=== PATIENT | male | born 1985 | race Two or more races ===

== ENCOUNTER 2019-12-23 10:50 | Outpatient (REF) | payer OTHER, SELFPAY ==
--- NOTE | 2019-12-23 11:05 | ECG_ITS ---
Test Reason : CHEST ABDUL AT REST Blood Pressure : / mmHG Vent. Rate : 066 BPM Atrial Rate : 066 BPM P-R Int : 134 ms QRS Dur : 106 ms QT Int : 400 ms P-R-T Axes : 069 068 038 degrees QTc Int : 419 ms Normal sinus rhythm Normal ECG When compared with ECG of 04-JUL-2018 00:26, No significant change was found Referred By: Caroline Canales Electronically Signed By:SANDHYA HUTTON
[2019-12-23 11:31] LABS: MANUAL DIFF FLAG NO
[2019-12-23 11:45] LABS: Basophils Absolute Auto 0.1 X10*3/uL (0.0-0.2); Basophils Percent Auto 0.9 % (0-2); Eosinophils Absolute Auto 0.2 X10*3/uL (0.0-0.4); Eosinophils Percent Auto 2.6 % (0-4); Hematocrit 44.6 % (42-52); Hemoglobin 14.3 g/dl (14.0-18.0); Imm Gran Abs Auto 0.02 X10*3/uL (0.00-0.03); Imm Gran Pct Auto 0.3 % (0.0-0.4); Lymphocytes Absolute Auto 2.2 X10*3/uL (1.2-4.9); Lymphocytes Percent Auto 27.6 % (20-40); Mean Corpuscular HGB Conc 32.1 g/dl (31.0-36.0); Mean Corpuscular Hemoglobin 26.7 pg (27.0-33.0); Mean Corpuscular Volume 83.4 fL (80-98); Mean Platelet Volume 9.6 fL (9.4-12.4); Monocytes Absolute Auto 0.5 X10*3/uL (0.1-1.2); Monocytes Percent Auto 6.8 % (2-11); Neutrophils Absolute Auto 4.9 X10*3/uL (2.0-8.3); Neutrophils Percent Auto 61.8 % (45-73); Platelet Count 303 X10*3/uL (160-400); Red Blood Count 5.35 X10*6/uL (4.60-5.80); Red Cell Distribution Width 12.7 % (11.0-16.0)
[2019-12-23 12:04] LABS: Alanine Aminotransferase 32 U/L (0-40); Albumin Level 4.3 g/dL (3.5-5.0); Alkaline Phosphatase 82 U/L (39-117); Anion Gap 10 (12-20); Aspartate Amino Transferase 23 U/L (5-37); Bilirubin Total 0.4 mg/dL (0.0-1.0); Blood Urea Nitrogen 13 mg/dL (9-16); Calcium 9.1 mg/dL (8.4-10.2); Carbon Dioxide 29 mmol/L (22-29); Chloride 108 mmol/L (96-108); Cholesterol 124 mg/dL; Estimated Glomerular Filt Rate > 60; Glucose Fasting 90 mg/dL (60-99); HDL Cholesterol 26 mg/dL; LDL Cholesterol Calculated 79 mg/dl; Potassium 4.6 mmol/l (3.3-5.1); Sodium 142 mmol/L (135-145); Total Protein 7.1 g/dL (6.5-8.0); Triglycerides 99 mg/dL
== END 2019-12-23 10:51 | disposition home or self-care (01) ==
LOC: HO.LAB 10:50
PROVIDERS: PCP Internal Medicine; Visit Provider Internal Medicine
DX: E66.09 Other obesity due to excess calories (principal); J45.40 Moderate persistent asthma, uncomplicated; R07.9 Chest pain, unspecified
CPT/HCPCS: 36415; 80053; 80061; 84443; 85025; 93005; 93010

== ENCOUNTER 2019-12-29 10:46 | Outpatient (REF) | payer OTHER, SELFPAY ==
[2019-12-29 11:26] LABS: COVID-19 Test Negative (Negative)
== END 2019-12-29 10:47 | disposition home or self-care (01) ==
LOC: HO.LAB 10:46
PROVIDERS: PCP Internal Medicine; Visit Provider Internal Medicine
DX: Z20.828 Contact with and (suspected) exposure to other viral communicable diseases (principal)
CPT/HCPCS: 87635

== ENCOUNTER 2020-01-09 14:30 | Emergency (ER) | payer OTHER, SELFPAY ==
[2020-01-09 14:40] VITALS: PULSE 86; RESP 18; TEMP 37.9; O2SAT 97; BMI 32.5
--- NOTE | 2020-01-09 16:20 | ED_ITS ---
HPI - Wound/Laceration General Chief Complaint: Wound/Laceration Stated Complaint: laceration rt arm Time Seen by Provider: 01/09/20 15:36 Source: patient Mode of arrival: ambulatory Limitations: no limitations History of Present Illness HPI narrative: patient accidentally cut his right arm with a knife last evening around 11 30. He noted a laceration and brought himself to the emergency department and read today. No numbness or tingling. Full range of motion of the affected joint. Tetanus was last received 1 year ago. Onset (ago): hour(s) (14hr) Extremity Location: right: forearm Place: home Patient tetanus UTD: Yes Context: accidental Associated symptoms: none Related Data Previous Rx's Medication Instructions Recorded albuterol sulfate 90 mcg/actuation 2 puff INHALATION Q4-6H PRN 30 12/21/19 aerosol inhaler Days #6.7 g budesonide 90 mcg/actuation breath 1 inh INHALATION BID 30 Days #1 ea 12/23/19 activated powder inhaler fluticasone 55 mcg-salmeterol 14 1 inh INHALATION BID 30 Days #1 ea 12/30/19 mcg/actuation breath activated powder Allergies Allergy/AdvReac Type Severity Reaction Status Date / Time shellfish derived Allergy Anaphylaxis Verified 01/09/20 14:47 Review of Systems Review of Systems: Yes all other systems are reviewed and are negative Constitutional: Constitutional: Reports no additional constitutional complaints, Denies body ache(s), Denies chills, Denies fever(s), Denies headache(s) and Denies weakness Eyes: Eyes: Reports no additional eye complaints and Denies change in vision ENT: Reports system reviewed and no additional complaints, except as documented, Denies dizziness, Denies headache(s), Denies nasal congestion, Denies nasal discharge and Denies neck pain Cardiovascular: Cardiovascular: Reports no additional cardiovascular complaints, Denies chest pain, Denies leg edema and Denies dyspnea Respiratory: Respiratory: Reports no additional respiratory complaints, Denies cough and Denies dyspnea Gastrointestinal: Gastrointestinal: Reports no additional gastrointestinal complaints, Denies abdominal pain, Denies diarrhea, Denies nausea and Denies vom iting Genitourinary: Genitourinary: Denies urinary incontinence Musculoskeletal: Musculoskeletal: Reports no additional musculoskeletal complaints, Denies back pain, Denies arthralgias, Denies joint swelling, Denies neck pain, Denies numbness and Denies tingling Integumentary/Breasts: Skin/Breast: Reports system reviewed and no additional complaints, except as docu and Denies rash Comments: Skin lac Neurologic: Reports system reviewed and no additional complaints, except as documented, Denies Abnormal speech present, Denies dizziness, Denies headache(s), Denies numbness, Denies tingling and Denies weakness PMFSH Past Medical History Attestation statement: The following information was validated with the patient. Source: obtained from family and nursing notes reviewed Medical History Mild asthma Social History Social History Smoked in Last 30 Days: No Use of substances other than those prescribed or required for medical reasons: Yes Substance Use Type: Marijuana Advance Directives: No Advance Directives Information Provided: Yes Physical Exam Vital Signs: Vital Signs: Vital Signs Temp Pulse Resp Pulse Ox 01/09/20 14:40 100.3 F 86 18 97 Body Mass Index 32.5 Const: General: cooperative, healthy appearing, comfortable and no acute distress Orientation/consciousness: patient oriented x3 Limitations: no limitations HENMT: Head: Yes normal to inspection Ears: hearing grossly normal bilaterally General nose exam: Normal external nose present Face and sinus: Yes normal facial exam Mouth: Normal oral and palatal mucosa present Throat: Yes posterior oropharynx normal Eyes: General: appearance normal, both eyes and all related structures Pupi ls: Equal, round and reactive pupils present Neck: Neck: Yes normal visual inspection Chest: Chest palpation & inspection: normal inspection of the chest Resp: Effort & Inspection: normal respiratory effort Auscultation: clear to auscultation bilaterally Cardio: Rate: regular rate Rhythm: regular rhythm Peripheral pulses: Peripheral pulses 2+ throughout GI: Inspection: Yes normal to inspection Palpation (GI): Soft to palpation and nontender Auscultation: normal bowel sounds Back/Spine/Pelvis: Thoracic/Lumbar Spine: thoracic and lumbar spine normal to inspection Skin: General skin exam: no rashes or lesions noted Neuro: General: patient oriented x3, no focal motor deficits and normal sensation to monofilament Cranial nerves: Yes Equal, round and reactive pupils present Cognition (Neuro): normal cognition Speech: No Abnormal speech present Gait exam (Neuro): Normal gait present Motor exam (neuro): 5/5 motor strength present throughout Extrem: Other: To the medial right forearm there is approximately a 3 cm laceration. FROM of distal and proximal joint. NV intact distally. General: Yes normal to inspection Procedures Laceration Laceration 1: Site: upper extremity (R FA) Side (If applicable): right Size (cm): 3 Description: linear Depth: simple, single layer Local Anesthetic: lidocaine 2% Pre-repair: wound explored and irrigated extensively Skin layer closed with: nylon Size (cm): 4-0 Number of sutures: 6 Technique: simple, interrupted Discharge Plan Discharge Clinical Impression: Laceration Patient Disposition: Home, Self-Care Instructions: Laceration (ED) Additional Instructions: Sutures out in 7-10 days wash with soap and water daily. no soaking in water Prescriptions: No Action albuterol sulfate [ProAir HFA] 90 mcg/actuation HFA aerosol inhaler 2 puff inhalation Q4-6H PRN (Reason: shortness of breath or wheezing) 30 Days Qty: 6.7 RF: 6 budesonide 90 mcg/actuation aerosol powdr breath activated 1 inh inhalation BID 30 Days Qty: 1 RF: 0 fluticasone propion-salmeterol [AirDuo RespiClick] 55-14 mcg/actuation aerosol powdr breath activated 1 inh inhalation BID 30 Days Qty: 1 RF: 6 Referrals: Caroline Artis MD [Primary Care Provider] - 2 days
== END 2020-01-09 16:49 | disposition home or self-care (01) ==
PROVIDERS: Emergency Provider Emergency Medicine; PCP Internal Medicine
DX: S41.111A Laceration without foreign body of right upper arm, initial encounter (principal); M79.601 Pain in right arm; W26.0XXA Contact with knife, initial encounter; Y93.9 Activity, unspecified; Y92.538 Other ambulatory health services establishments as the place of occurrence of the external cause; Y99.9 Unspecified external cause status; Z79.899 Other long term (current) drug therapy
CPT/HCPCS: 12002; 99284

== ENCOUNTER 2020-01-19 13:27 | Emergency (ER) | payer OTHER, SELFPAY ==
[2020-01-19 13:37] VITALS: BP 122/84; PULSE 83; RESP 16; TEMP 36.9; O2SAT 97; BMI 31.6
--- NOTE | 2020-01-19 13:52 | ED.WOUNDLAC ---
HPI - Wound/Laceration General Chief Complaint: Wound/Laceration Stated Complaint: SUTURE REMOVAL Time Seen by Provider: 01/19/20 13:45 Source: patient Mode of arrival: ambulatory Limitations: no limitations History of Present Illness HPI narrative: 35 y/o male seen here on 01/08 for a right forearm laceration s/p 6 sutures. He returns today for removal. No issues with pain, redness, discharge or delayed healing. Related Data Previous Rx's Medication Instructions Recorded albuterol sulfate 90 mcg/actuation 2 puff INHALATION Q4-6H PRN 30 12/21/19 aerosol inhaler Days #6.7 g budesonide 90 mcg/actuation breath 1 inh INHALATION BID 30 Days #1 ea 12/23/19 activated powder inhaler fluticasone 55 mcg-salmeterol 14 1 inh INHALATION BID 30 Days #1 ea 12/30/19 mcg/actuation breath activated powder Allergies Allergy/AdvReac Type Severity Reaction Status Date / Time shellfish derived Allergy Anaphylaxis Verified 01/09/20 14:47 Review of Systems Review of Systems: Constitutional: No Fever, No Chills Cardiovascular: No Chest Pain, No SOB Respiratory: No Cough, No Sputum Gastrointestinal: No Nausea, No Vomiting Musculoskeletal: No joint pain, No Myalgias Skin: No Skin Lesions, No rash Neuro: No Weakness, No Numbness Heme/Lymph: No Bruising, No Lymphadenopathy PMFSH Past Medical History Attestation statement: The following information was validated with the patient. Medical History Mild asthma Social History Social History Substance Use Type: Marijuana Advance Directives: No Advance Directives Information Provided: No Physical Exam Vital Signs: Vital Signs: Vital Signs Temp Pulse Resp BP Pulse Ox 01/19/20 13:37 98.5 F 83 16 122/84 97 Body Mass Index 31.6 Appearance: Alert. Oriented X3. No acute distress. HEENT: normal inspection CVS: Normal heart rate and rhythm. Pulses normal. Respiratory: No respiratory distress. Skin: Skin warm and dry. Normal skin color. Normal skin turgor. No rashes. Extremities: right dorsal forearm with healing laceration. no cellulitis or purulent drainage. Neuro: Oriented X 3. No motor deficit. No sensory deficit. Course Course Course Narrative: well healing laceration without complications. sutures removed and skin care discussed. Procedures Procedure Narrative Procedure Narrative: 6 individual sutures were removed from right forearm. no retained sutures. area cleansed and dried. no complications. no signs of infection. MDM - Wound/Laceration Medical Records Attestation: I reviewed the patient's medical records. Critical Care Time Critical Care Time Critical Care Time: No Discharge Plan Discharge Clinical Impression: Visit for suture removal Patient Disposition: Home, Self-Care Instructions: Stitches Removal (ED) Additional Instructions: Use topical Neospoirin or bacitracin to the area two times per day for the next 48 hours. Recommend using topical cream from the pharmacy to help prevent scarring like Mederma. Follow up with your Primary Care Doctor as needed. Prescriptions: No Action albuterol sulfate [ProAir HFA] 90 mcg/actuation HFA aerosol inhaler 2 puff inhalation Q4-6H PRN (Reason: shortness of breath or wheezing) 30 Days Qty: 6.7 RF: 6 budesonide 90 mcg/actuation aerosol powdr breath activated 1 inh inhalation BID 30 Days Qty: 1 RF: 0 fluticasone propion-salmeterol [AirDuo RespiClick] 55-14 mcg/actuation aerosol powdr breath activated 1 inh inhalation BID 30 Days Qty: 1 RF: 6 Interventions: ED Discharge Assessment Last Done: 01/19/20 14:00 Discharge Date/Time: 01/19/20 14:00 Print Language: Tunisian
== END 2020-01-19 14:00 | disposition home or self-care (01) ==
PROVIDERS: Emergency Provider Emergency Medicine; PCP Internal Medicine
DX: Z48.02 Encounter for removal of sutures (principal)
CPT/HCPCS: 99283

== ENCOUNTER 2020-05-18 15:21 | Outpatient (REF) | payer OTHER, SELFPAY | END 2020-05-18 15:22 | disposition home or self-care (01) | LOC: HO.LAB 15:21 | PROVIDERS: Visit Provider Internal Medicine | DX: Z20.822 Contact with and (suspected) exposure to COVID-19 (principal) | CPT/HCPCS: 36415; C9803; U0003; U0005 ==

== ENCOUNTER 2020-05-24 13:58 | Outpatient (REF) | payer OTHER, SELFPAY ==
--- NOTE | ~2020-05-24 | US_ITS ---
EXAMINATION: US RETROPERITONEAL LIMITED (RENAL ONLY) CLINICAL INFORMATION: Renal cyst. COMPARISON: Ultrasound renals only dated 04/22/2019 and 04/02/2017. KUB dated 04/15/2018 and 09/12/2016. MRI abdomen without and with contrast dated 03/04/2018. CT abdomen and pelvis without contrast dated 05/09/2016. TECHNIQUE: Real-time imaging of the kidneys. FINDINGS: RIGHT KIDNEY: 15.3 x 5.0 x 8.2 cm (SAG x AP x TRV). Several anechoic cysts are again seen the largest of which is seen in the interpolar region measuring 5.0 cm (previously 4.0 cm). No nephrolithiasis or hydronephrosis. LEFT KIDNEY: 13.1 x 6.6 x 6.5 cm (SAG x AP x TRV). Several anechoic cysts are again seen. One of the largest is in the interpolar region measuring 3.4 cm (previously 3.6 cm). No nephrolithiasis or hydronephrosis. US/US renal BI IMPRESSION: Bilateral renal cysts demonstrate benign features as detailed above. No nephrolithiasis or hydronephrosis.
== END 2020-05-24 13:59 | disposition home or self-care (01) ==
LOC: HO.US 13:58
PROVIDERS: Visit Provider Urology
DX: N28.1 Cyst of kidney, acquired (principal)
CPT/HCPCS: 76775

== ENCOUNTER 2020-06-02 12:04 | Outpatient (REF) | payer OTHER, SELFPAY | END 2020-06-02 12:05 | disposition home or self-care (01) | LOC: HO.LAB 12:04 | PROVIDERS: PCP Internal Medicine; Visit Provider Internal Medicine | DX: Z20.822 Contact with and (suspected) exposure to COVID-19 (principal) | CPT/HCPCS: 36415; C9803; U0003; U0005 ==

== ENCOUNTER 2020-09-01 17:05 | Emergency (ER) | payer OTHER, SELFPAY ==
--- NOTE | ~2020-09-01 | XR_ITS ---
EXAMINATION: XR CERVICAL SPINE CLINICAL INFORMATION: Neck pain COMPARISON: None TECHNIQUE: 3 views of the cervical spine were obtained. FINDINGS: No acute abnormality. No fracture subluxation. No prevertebral soft tissue swelling. There are multilevel mild degenerative changes. There is mild narrowing of the C5-C6 disc. There are are partially bridging spurs at the anterior endplate C5-C6. The C6-C7 disc height is narrowed. Facet joints are normal. XR/XR cervical spine 3V IMPRESSION: 1. No acute abnormality. 2. Mild degenerative change of cervical spine.
[2020-09-01 17:13] VITALS: BP 127/72; PULSE 80; RESP 16; TEMP 36.8; O2SAT 97; BMI 31.6
--- NOTE | 2020-09-01 18:52 | ED.GENADULT ---
HPI - General Adult General Chief complaint: General Medical Stated complaint: neck pain Source: patient Mode of arrival: ambulatory Limitations: language barrier History of Present Illness HPI narrative: 35-year-old male with no significant past medical history presents with neck pain. States the pain started while he was at work approximately 5 days ago and has not alleviated. He does not report any loss of sensation to the extremities, has full range of motion to all extremities and does not report any other concerning symptoms. He denies chest pain or pressure, palpitations, shortness breath, shortness breath on exertion, abdominal pain, abdominal distention, symptoms indicating cauda equina, nausea vomiting, diarrhea, constipation, fevers, chills, dizziness, lightheadedness, weakness, and loss of balance. Onset (ago): day(s) (Five) Location: neck Radiation: neck Severity: moderate Severity scale (1-10): 6 Quality: aching Pain Consistency: intermittent Relieving factors: rest Exacerbating factors: movement Associated symptoms: denies other symptoms Treatments prior to arrival: NSAID Related Data Previous Rx's Medication Instructions Recorded albuterol sulfate 90 mcg/actuation 2 puff INHALATION Q4-6H PRN 30 08/31/20 aerosol inhaler Days #6.7 g fluocinolone acetonide oil 0.01 % 5 drp OTIC (EARS) BID 14 Days #20 08/31/20 ear drops ml fluticasone 55 mcg-salmeterol 14 1 inh INHALATION BID 30 Days #1 ea 08/31/20 mcg/actuation breath activated powder ibuprofen 800 mg tablet 800 mg PO Q8H PRN 7 Days #21 tab 08/31/20 cyclobenzaprine 10 mg PO TID PRN #14 tab 09/01/20 Allergies Allergy/AdvReac Type Severity Reaction Status Date / Time seafood Allergy Unknown Anaphylaxis Verified 08/31/20 11:01 shellfish derived Allergy Unknown Anaphylaxis Verified 08/31/20 11:01 Review of Systems Review of Systems: Constitutional: No Fever, No Chills ENT/Mouth: No Ear Pain, No Hoarseness, No sore throat Eyes: No Eye Pain, No Swelling, No Redness, No Foreign Body Cardiovascular: No Chest Pain, No SOB Respiratory: No Cough, No Dyspnea Gastrointestinal: No Nausea, No Vomiting, No Diarrhea, No abdominal Pain Genitourinary: No Dysuria, No Hematuria Musculoskeletal: positive neck pain, No Myalgias, No Joint Swelling Skin: No Skin lacerations, No rash Neuro: No Weakness, No Numbness, No Paresthesias, No Loss of Consciousness, No Dizziness, No Headache Psych: No Anxiety/Panic, No Depression Heme/Lymph: no easy bruising, no Lymphadenopathy Endocrine: No Polyuria, No Polydipsia Yes all other systems are reviewed and are negative [facility] Past Medical History Attestation statement: The following information was validated with the patient. Source: old records reviewed Medical History Mild asthma Surgical History Cleft lip Family History Family History Father No problems noted. Mother No problems noted. Maternal Grandmother Lung cancer Maternal Uncle Liver cancer Social History Social History Housing: Apartment Alcohol intake: never Patient Tobacco Use Status: Former Tobacco user Tobacco use type: Cigarette Substance Use Type: Marijuana Advance Directives: No Advance Directives Information Provided: No Current occupational status: employed Physical Exam Vital Signs: Vital Signs: Last Vital Signs Temp 98.2 F 09/01/20 17:13 Pulse 66 09/01/20 19:53 Resp 16 09/01/20 19:53 BP 118/78 09/01/20 19:53 Pulse Ox 99 09/01/20 19:53 Body Mass Index 31.6 Appearance: Alert. Oriented X3. No acute distress. Head: Normal external exam. Normocephalic. Atraumatic. No [place] signs noted. No raccoon eyes noted Eyes: PERRLA. EOMI. Conjunctiva and sclera normal. Eyelids normal. ENT: TM's Normal. Pharynx normal. Uvula midline. Moist mucous membranes. No trismus noted. No drooling noted. No muffled voice noted. Neck: Normal inspection. Neck supple. No adenopathy. Thyroid Normal. No meningeal signs. No neck mass noted. No cervical spine tenderness, no step-offs. Tenderness noted to the trapezius muscles. CVS: Normal heart rate and rhythm. Heart sound normal. No murmurs noted. Pulses equal to all extremities. Respiratory: No respiratory distress. Painless inspiration. Breath sounds normal. No wheezes/rales/rhonchi noted. Chest nontender. No accessory muscle usage noted or decreased air movement noted. Abdomen: Soft and nontender. Bowel sounds normal in all 4 quadrants. No distention noted. No organomegaly noted. No visible injury noted. Back: No CVA tenderness. Full range of motion noted. No vertebral tenderness to palpation, no step-offs. Skin: Skin warm and dry. Normal skin color. Normal skin turgor. No rashes/lesions/lacerations noted. Extremities: No lower extremity edema. Extremities exhibit normal range of motion. Extremities nontender. Neuro: cranial nerves 2-12 intact, no focal neural deficits, strength 5/5 to all extremities, No motor deficit. No sensory deficit. Reflexes normal. Course Course Course Narrative: 35-year-old male presents with neck and upper back pain after an injury sustained at work approximately 5 days ago. Physical exam is normal, has full range of motion to all extremities, strength 5/5, negative Romberg. Gait is well balanced well coordinated. No indication of neurological deficit. Will order x-ray of the cervical spine. X-rays negative for acute findings, shows degenerative disc disease. Will have patient follow up with [facility] in 3 days for further follow-up. Patient was advised to follow-up with pain management as well as physical therapy as he may need prolonged care for this finding. community service worker utilized for all correspondence. Google translate utilized in discharge instructions. Patient verbalized understanding of and agrees to plan of care discharge home. Medical Decision Making Imaging Data Cervical spine x-ray: Attestation: I personally reviewed and interpreted this imaging study as follows: Radiologist's impression: EXAMINATION: XR CERVICAL SPINE CLINICAL INFORMATION: Neck pain COMPARISON: None TECHNIQUE: 3 views of the cervical spine were obtained. FINDINGS: No acute abnormality. No fracture subluxation. No prevertebral soft tissue swelling. There are multilevel mild degenerative changes. There is mild narrowing of the C5-C6 disc. There are are partially bridging spurs at the anterior endplate C5-C6. The C6-C7 disc height is narrowed. Facet joints are normal. XR/XR cervical spine 3V IMPRESSION: 1. No acute abnormality. 2. Mild degenerative change of cervical spine. Discharge Plan Discharge Clinical Impression: Cervical muscle strain Qualifiers: Encounter type: initial encounter Qualified Code(s): S16.1XXA - Strain of muscle, fascia and tendon at neck level, initial encounter Degenerative disc disease Qualifiers: Spinal region: cervicothoracic Qualified Code(s): M50.33 - Other cervical disc degeneration, cervicothoracic region Patient Disposition: Home, Self-Care Instructions: Cervical Strain (ED), Degenerative Disc Disease (ED) Additional Instructions: You evaluated for injury sustained at work. X-rays of the spine showed degenerative disc disease. Your physical exam is consistent with muscular cervical strain. We prescribed Flexeril. Flexeril as a muscle relaxer and has high rate falls, drowsiness, and delayed reaction time. Do not drive or operate machinery while taking this medication. This medication is not a narcotic, it is designed to reduce muscle spasms. Follow-up with [facility]. Thank you for choosing this emergency department for evaluation. Please follow-up with primary care physician as needed. Return to the emergency department for any new, concerning, or worsening symptoms. Prescriptions: New cyclobenzaprine 10 mg tablet 10 mg PO TID PRN (Reason: muscle spasm) Qty: 14 RF: 0 No Action albuterol sulfate [ProAir HFA] 90 mcg/actuation HFA aerosol inhaler 2 puff inhalation Q4-6H PRN (Reason: shortness of breath or wheezing) 30 Days Qty: 6.7 RF: 6 fluocinolone acetonide oil 0.01 % drops 5 drp otic (ears) BID 14 Days Qty: 20 RF: 3 fluticasone propion-salmeterol [AirDuo RespiClick] 55-14 mcg/actuation aerosol powdr breath activated 1 inh inhalation BID 30 Days Qty: 1 RF: 6 ibuprofen 800 mg tablet 800 mg PO Q8H PRN (Reason: pain) 7 Days Qty: 21 RF: 0 Referrals: [facility] [Provider Group] - 2 days (Work related cervical spine injury) Nicola Wheat MD [Physician] - 2 days (Cervical degenerative disc disease) Stand Alone Forms: Work/School Release Interventions: ED Discharge Assessment Last Done: 09/01/20 20:43 Discharge Date/Time: 09/01/20 20:44
[2020-09-01 19:53] VITALS: BP 118/78; PULSE 66; RESP 16; O2SAT 99
== END 2020-09-01 20:44 | disposition home or self-care (01) ==
PROVIDERS: Emergency Provider Emergency Medicine Emergency Medical Services; PCP Internal Medicine
DX: S16.1XXA Strain of muscle, fascia and tendon at neck level, initial encounter (principal); M50.33 Other cervical disc degeneration, cervicothoracic region; J45.909 Unspecified asthma, uncomplicated; X58.XXXA Exposure to other specified factors, initial encounter; Y93.9 Activity, unspecified; Y92.9 Unspecified place or not applicable; Y99.0 Civilian activity done for income or pay; Z79.899 Other long term (current) drug therapy
CPT/HCPCS: 72040; 99283; 99284

== ENCOUNTER 2021-05-30 14:33 | Outpatient (REF) | payer OTHER, SELFPAY ==
[2021-05-30 15:04] LABS: COVID-19 Test Negative (Negative)
== END 2021-05-30 14:34 | disposition home or self-care (01) ==
LOC: HO.LAB 14:33
PROVIDERS: Visit Provider Internal Medicine
DX: Z20.822 Contact with and (suspected) exposure to COVID-19 (principal)
CPT/HCPCS: 87635; C9803

== ENCOUNTER 2021-10-19 16:04 | Outpatient (REF) | payer OTHER, SELFPAY ==
[2021-10-19 16:57] LABS: Alanine Aminotransferase 29 U/L (0-40); Albumin Level 4.1 g/dL (3.5-5.0); Alkaline Phosphatase 97 U/L (39-117); Anion Gap 12 (12-20); Aspartate Amino Transferase 42 U/L (5-37); Bilirubin Total 0.7 mg/dL (0.0-1.0); Blood Urea Nitrogen 10 mg/dL (9-16); Calcium 8.9 mg/dL (8.4-10.2); Carbon Dioxide 26 mmol/L (22-29); Chloride 107 mmol/L (96-108); Estimated Glomerular Filt Rate > 60; Glucose Fasting 91 mg/dL (60-99); Potassium 3.9 mmol/L (3.3-5.1); Sodium 141 mmol/L (135-145); Total Protein 6.8 g/dL (6.5-8.0)
== END 2021-10-19 16:05 | disposition home or self-care (01) ==
LOC: HO.LAB 16:04
PROVIDERS: PCP Internal Medicine; Visit Provider Internal Medicine
DX: J45.30 Mild persistent asthma, uncomplicated (principal)
CPT/HCPCS: 36415; 80053

== ENCOUNTER 2023-02-13 12:47 | Outpatient (AMB) | payer OTHER, SELFPAY ==
--- NOTE | 2023-02-13 13:04 | A.OFFPC_ITS ---
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 Accompanied by: Self / Same As Patient Allergies seafood Allergy (Unknown, Verified 02/13/23 13:22) Anaphylaxis shellfish derived Allergy (Unknown, Verified 02/13/23 13:22) Anaphylaxis Medication List - Last Reconciled 02/13/23 by Caroline Canales MD albuterol sulfate 90 mcg/actuation (ProAir HFA) 2 puffs inhalation Q4-6H PRN 30 days Tobacco use date assessed: 02/13/23 Dental Screening Dental Screen Date: 02/13/23 Did you have a dental visit in the last 12 months?: Yes Did you have a dental problem in the last 6 months where you did not have access to dental care?: No Was dental information given to patient?: Patient has dentist HPI HPI Comments History of Present Illness Details This is a 38-year-old male that comes for his physical exam. He has asthma that is occasionally exacerbated by certain places of his work that are very giovanny. No chest pain. Has been require rescue inhaler more often for the past 3 days. No fever. [facility] Medical History Chest pain, atypical Strain of lumbar paraspinal muscle Mild asthma Surgical History Cleft lip Family History Father Myocardial infarction Mother No problems noted. Maternal Grandmother Lung cancer Maternal Uncle Liver cancer Social History (Updated 02/13/23 @ 13:25 by Caroline Canales MD) Housing: Apartment Alcohol intake: current Alcohol intake frequency: holidays/special occasions only Alcohol type: beer, wine and hard liquor Patient Tobacco Use Status: Former Tobacco user Quit Date: 15 years ago Tobacco use type: Cigarette e-Cigarette/Vaping Use: Never Used Second Hand Smoke Exposure: No Substance Use Type: Marijuana service: No Current occupational status: employed Current occupational exposures/hazards: No Cognitive needs: No Hearing needs: No Vision needs: No Questionnaire PHQ-9 Over the last 2 weeks, how often have you been bothered by any of the following problems? 1. Little interest or pleasure in doing things: not at all 2. Feeling down, depressed, or hopeless: not at all 3. Trouble falling or staying asleep, or sleeping too much: not at all 4. Feeling tired or having little energy: not at all 5. Poor appetite or overeating: not at all 6. Feeling bad about yourself - or that you are a failure or have let yourself or your family down: not at all 7. Trouble concentrating on things, such as reading the newspaper or watching television: not at all 8. Moving or speaking so slowly that other people could have noticed. Or the opposite - being so fidgety or restless that you have been moving around a lot more than usual: not at all 9. Thoughts that you would be better off or of hurting yourself in some way: not at all Total score: 0 Depression Screening Interpretation: Negative Depression Screening Done: Yes 59056 - PHQ-9 Billing: Yes Source: Developed by Drs. Jose Guadalupe Garcia, Belinda Harrison, Arturo Escalera and colleagues, with an educational abelino from [employer] (previously [employer]). Thrive Questionnaire Date Thrive assessed: 02/13/23 I am a: Patient What is your living situation today?: I have a steady place to live Within the past 12 months, did the food you bought not last and you didn't have the money to get more?: Never true Within the past 12 months, did you worry whether your food would run out before you got money to buy more?: Never true Do you have trouble paying for medicines?: No Do you have trouble getting transportation to medical appointments?: No Do you have trouble paying your heating and electricity bill?: No Do you have trouble taking care of your child, family member or friend?: No Do you have trouble with day-to-day activities such as bathing, preparing meals, shopping, managing finances, etc.?: No Are you currently unemployed and looking for a job?: No Are you interested in more education?: No Please select the resources that you would like help with: None Currently or been in a relationship where the following occur: no concerns reported AUDIT C Alcohol Use Questionnaire (AUDIT-C) 1. How often do you have a drink containing alcohol?: Never Total Score: 0 IGLESIA-7 AMB Questionnaire IGLESIA-7 Date IGLESIA - 7 assessed: 02/13/23 Feeling nervous, anxious, or on edge: 0 = Not at all Not being able to stop or control worryin = Not at all Worrying too much about different things: 1 = Several days Trouble relaxin = Not at all Being so restless that it is hard to sit still: 0 = Not at all Becoming easily annoyed or irritable: 0 = Not at all Feeling afraid as if something awful might happen: 0 = Not at all Total IGLESIA-7 score (0-4 normal; 5-9 mild; 10-14 moderate; 15-21 severe): 1 Source: Developed by Drs. Jose Guadalupe Garcia, Belinda Harrison, Arturo Escalera and colleagues, with an educational abelino from [employer] ([employer]viously [employer]). IGLESIA-7 Assessment Billing IGLESIA-7 Assessment Tool: IGLESIA-7 Assessment 58255 Review of Systems Const All systems reviewed & are unremarkable except as noted in HPI and below Eyes Reports no additional complaints, Denies change in vision and Denies other visual disturbances Card Denies chest pain at rest, Denies chest pain with activity, Denies edema, Denies irregular heart rhythm, Denies claudication, Denies dyspnea, Denies dyspnea on exertion, Denies orthopnea, Denies paroxysmal nocturnal dyspnea and Denies slow heart rate Resp Denies cough, Denies dyspnea and Denies dyspnea on exertion GI Denies abdominal pain, Denies change in bowel habits, Denies excessive flatus, Denies nausea and Denies vomiting Denies urinary hesitancy, Denies urinary incontinence and Denies urinary urgency Musc Denies abnormal gait, Denies atrophy, Denies deformity and Denies limited range of motion Skin/Breast Denies bleeding lesions, Denies changing lesions and Denies rash Neuro Denies abnormal gait and Denies lack of coordination Physical exam (Primary Care) Vital Signs: Last Vital Signs BP 120/82 02/13/23 13:05 BMI result Body Mass Index 30.1 Tobacco/Smoking Status: Tobacco use Status Tobacco use date assessed 02/13/23 02/13/23 13:09 Patient Tobacco Use Status Former Tobacco user 02/13/23 13:25 Tobacco use type Cigarette 02/13/23 13:25 e-Cigarette/Vaping Use Never Used 02/13/23 13:25 PHQ-9: PHQ-9 Score PHQ-9: Total score 0 02/13/23 13:25 Depression Screening Interpretation: Negative Thrive Assessment: Date of Thrive Assessment Date Thrive assessed 02/13/23 02/13/23 13:11 Currently or been in a relationship where the following occur: no concerns reported Const Orientation/consciousness: patient oriented x3 HENDC Head: Yes normal to inspection, Yes normocephalic and Yes atraumatic Ears: external ears normal Eyes General: appearance normal, both eyes and all related structures Eyelids: Yes eyelids normal Conjunctivae: conjunctivae normal Neck Neck: Yes normal visual inspection and Yes supple Resp Effort & Inspection: normal respiratory effort Auscultation: wheezes Cardio Jugular venous distension: no JVD Rate: regular rate Rhythm: regular rhythm Heart sounds: S1 normal heart sound present and S2 normal heart sound present GI Inspection: Yes normal to inspection Palpation (GI): Soft to palpation and nontender Auscultation: normal bowel sounds Skin General skin exam: no rashes or lesions noted Neuro General: patient oriented x3 and no focal motor deficits Extrem General: Yes full ROM Psych Appearance: grossly normal Office Procedures Flu Questionnaire Does the patient have a severe egg allergy?: No Immunizations flu vacc [id number] 6mos up(PF) 60 mcg(15 mcgx4)/0.5 mL IM syringe Performing Provider: Caroline Canales MD [facility] Documented (not given) by: JARETT Massey on 02/13/23 13:11 Reason Not Given: Patient Refused Assessment and Plan Assessment & Plan (1) Physical exam: Code(s): Z00.00 - Encounter for general adult medical examination without abnormal findings Plan: Repeat in a year Orders: Orders Influenza [id number] Immunization Today Z23 - Encounter for immunization Medications: New Ventolin HFA 90 mcg/actuation (albuterol sulfate) 2 puffs inhalation Q6H PRN 8 grams 2RF shortness of breath or wheezing 30 days NS prednisone Take 4 tabs for 2 days, then 3 tabs for 2 days, then 2 tabs for 2 days, then 1 tab for 2 days. 10 mg PO DIRECTED 20 tabs 0RF 8 days fluocinolone acetonide oil 0.01% (DermOtic Oil) 5 drps otic (ears) BID 20 mL 0RF 7 days budesonide 0.25 mg (2 mL) inhalation BID 120 mL 2RF 30 days J45.909 - Unspecified asthma, uncomplicated Coding Level of Care Code Est Pt Prev Care 18-39y(71555) Diagnoses Physical exam Z00.00 Additional Codes IGLESIA-7 Assessment Billing - IGLESIA-7 Assessment Tool: IGLESIA-7 Assessment 40930 ([id number]) Time Spent (min) 33
[2023-02-13 13:05] VITALS: BP 120/82; BMI 30.1
== END 2023-02-13 13:32 | disposition home or self-care (01) ==
PROVIDERS: Visit Provider Internal Medicine
DX: Z00.00 Encounter for general adult medical examination without abnormal findings (principal); J45.30 Mild persistent asthma, uncomplicated
CPT/HCPCS: 99395

== ENCOUNTER 2024-09-19 22:34 | Emergency (ER) | payer OTHER, SELFPAY ==
--- NOTE | ~2024-09-19 | XR_ITS ---
CLINICAL HISTORY: swelling 4 view left knee Comparison: None provided Findings: Bones intact. No dislocations. Small joint effusion. No radiopaque foreign body. IMPRESSION: 1. No acute osseous injury. 2. Small joint effusion. This document has been electronically signed by: Kai Willoughby MD on 09/20/2024 01:01:47
[2024-09-19 22:55] VITALS: BP 117/79; PULSE 87; RESP 16; TEMP 36.7; O2SAT 96; BMI 33.3
--- NOTE | 2024-09-20 01:12 | ED_ITS ---
HPI - General Adult General Chief complaint: Extremity Injury, Lower Stated complaint: left knee pain/swollen Time Seen by Provider: 09/20/24 00:56 Source: patient Limitations: no limitations History of Present Illness ED Provider: Sandhya Mead PA-C HPI narrative: 39-year-old male with a history of asthma who presents with left knee pain and swelling x1 day. Patient denies fall or other related trauma. He states he performs a great deal of physical activity related to work, going up and down the stairs frequently throughout the day. Denies redness, warmth, fever inability to flex or extend the knee. Denies history of gout. Related Data Previous Rx's ?Medication ?Instructions ?Recorded albuterol sulfate 90 mcg/actuation 2 puff inhalation Q 4-6H PRN 10/24/21 aerosol inhaler (ProAir HFA) shortness of breath or wh eezing 30 days #6.7 grams Ventolin HFA 90 mcg/actuation 2 puff inhalation Q6H TX N 02/13/23 aerosol inhaler (albuterol sulfate) shortness of breat h or wheezing 30 days #8 grams budesonide 0.25 mg/2 mL suspension 0.25 mg (2 mL) inha lation BID 30 02/13/23 for nebulization days #120 mL fluocinolone acetonide oil 0.01 % 5 drp otic (ears) BI D 7 days #20 mL 02/13/23 ear drops (DermOtic Oil) prednisone 10 mg tablet 10 mg PO DIRECTED 8 days #20 02/13/23 tabs ketorolac 10 mg tablet 10 mg PO Q6H PRN pain #20 ta bs 09/20/24 Allergies Allergy/AdvReac Type Severity Reaction Status Date / Time seafood Allergy Unknown Anaphylaxis Verified 09/19/24 22:58 shellfish derived Allergy Unknown Anaphylaxis Verified 09/19/24 22:58 Review of Systems Review of Systems: Yes all other systems are reviewed and are negative Constitutional: Constitutional: Denies fatigue and Denies fever(s) Musculoskeletal: Musculoskeletal: Reports arthralgias and Reports joint swelling Integumentary/Breasts: Skin/Breast: Denies erythema Endocrine: Endocrine: Denies fatigue PMFSH Past Medical History Attestation statement: The following information was validated with the patient. Medical History Chest pain, atypical Strain of lumbar paraspinal muscle Mild asthma Surgical History Cleft lip Family History Family History Father Myocardial infarction Mother No problems noted. Maternal Grandmother Lung cancer Maternal Uncle Liver cancer Social History Social History (Updated 02/13/23 @ 13:25 by Caroline Canales MD) Housing: Apartment Alcohol intake: current Alcohol intake frequency: holidays/special occasions only Alcohol type: beer, wine and hard liquor Patient Tobacco Use Status: Former Tobacco user Tobacco use type: Cigarette e-Cigarette/Vaping Use: Never Used Second Hand Smoke Exposure: No Substance Use Type: Marijuana Advance Directives: No Advance Directives Information Provided: No Do you have a plan to hurt others: No Plan service: No Current occupational status: employed Current occupational exposures/hazards: No Cognitive needs: No Hearing needs: No Vision needs: No Physical Exam ED Vital Signs: Vital Signs - 24 hr 09/19/24 22:55 Temperature 98.1 F Pulse Rate 87 Respiratory Rate 16 Blood Pressure 117/79 Pulse Oximetry 96 Oxygen Delivery Method Room Air BMI result Body Mass Index 33.3 Const Other: Alert well-appearing Orientation/consciousness: patient oriented x3 Resp Effort & Inspection: normal respiratory effort Cardio Other: Normal peripheral perfusion Skin Other: Warm dry no rash Neuro General: patient oriented x3, gait normal, no focal motor deficits and CN's II- XI intact bilaterally Extrem Other: Patient able to fully flex and extend the knee, there was no overlying erythema warmth or redness of the joint Psych Other: Cooperative Medical Decision Making Medical Decision Making MDM Narrative: 39-year-old male with a history of asthma who presents with left knee pain and swelling x1 day. Patient denies fall or other related trauma. He states he performs a great deal of physical activity related to work, going up and down the stairs frequently throughout the day. Denies redness, warmth, fever inability to flex or extend the knee. Denies history of gout. Problem: Repetitive activity History: Per patient I have considered the following differential diagnoses: Fracture, dislocation, contusion, septic joint, gout, sprain Plan: X-ray obtained from triage, there was a small effusion, no fracture no dislocation. The patient also does not have exam findings consistent with a septic joint or gout. I have independently reviewed the following tests: X-ray left knee:Findings: Bones intact. No dislocations. Small joint effusion. No radiopaque foreign body. IMPRESSION: 1. No acute osseous injury. 2. Small joint effusion. Discharge Plan Discharge Clinical Impression: Strain of left knee, Effusion of bursa of left knee Patient Disposition: Home, Self-Care Instructions: Knee Sprain (ED), Swollen Knee Joint (ED), P.R.I.C.E. Treatment (ED), Knee Immobilizer (ED) Additional Instructions: The x-ray revealed no fracture or dislocation, you do have a small joint effusion. You are being treated for a knee sprain. See home care instructions. Bear weight as tolerated. You should purchase a compression sleeve, they can be found at [employer], [employer], [employer] etc. use the ketorolac as directed, this is an anti-inflammatory. Follow up with your primary care provider as needed. Prescriptions: New ketorolac 10 mg tablet 10 mg PO Q6H PRN (Reason: pain) Qty: 20 0RF Rx Instructions: maximum total duration of 5 days from all oral, intranasal, or parenteral formulations. The patient received an intramuscular dose of Toradol here in the emergency room No Action albuterol sulfate [ProAir HFA] 90 mcg/actuation HFA aerosol inhaler 2 puff inhalation Q4-6H PRN (Reason: shortness of breath or wheezing) 30 Days Qty: 6.7 6RF budesonide 0.25 mg/2 mL suspension for nebulization 0.25 mg inhalation BID 30 Days Qty: 120 2RF albuterol sulfate [Ventolin HFA] 90 mcg/actuation HFA aerosol inhaler 2 puff inhalation Q6H PRN (Reason: shortness of breath or wheezing) 30 Days Qty: 8 2RF prednisone 10 mg tablet 10 mg PO DIRECTED 8 Days Qty: 20 0RF Rx Instructions: Take 4 tabs for 2 days, then 3 tabs for 2 days, then 2 tabs for 2 days, then 1 tab for 2 days. fluocinolone acetonide oil [DermOtic Oil] 0.01 % drops 5 drp otic (ears) BID 7 Days Qty: 20 0RF Stand Alone Forms: Work/School Release Print Language: Japanese
[2024-09-20 01:34] VITALS: BP 117/79; PULSE 87; RESP 16; TEMP 36.7; O2SAT 96
--- NOTE | 2024-09-20 01:35 | PC.NURSE ---
Pt declined crutches as he states having crutches at home. Left knee immobilizer placed. Pt tolerated well.
== END 2024-09-20 01:36 | disposition home or self-care (01) ==
PROVIDERS: Emergency Provider Emergency Medicine; PCP Internal Medicine
DX: S86.912A Strain of unspecified muscle(s) and tendon(s) at lower leg level, left leg, initial encounter (principal); M25.462 Effusion, left knee; X58.XXXA Exposure to other specified factors, initial encounter; Y93.9 Activity, unspecified; Y92.9 Unspecified place or not applicable; Y99.8 Other external cause status
CPT/HCPCS: 73564; 96372; 99284; J1885

== ENCOUNTER → 2024-09-19 23:09 | Outpatient (BNV) | payer OTHER, SELFPAY | PROVIDERS: Emergency Provider Emergency Medicine; PCP Internal Medicine; Visit Provider Radiology Diagnostic Radiology | DX: M25.462 Effusion, left knee (principal) | CPT/HCPCS: 73564 ==